=== PATIENT | female | born 1975 | race African-American/Black ===

== ENCOUNTER 2020-06-23 09:19 | Emergency (ER) | payer BC ==
[2020-06-23 09:29] VITALS: BP 166/99
--- NOTE | 2020-06-23 10:17 | ER Document Report ---
HPI - HPI Patient complains to provider of: Bilateral feet pain Time Seen by Provider: 06/23/20 10:03 Pain Level: 5 Context: 44-year-old female denies any past medical history presents emergency room complaining of bilateral feet pain for the past 2 months. Has been getting progressively worse over the past week. States her right foot is worse than the left. States most of her pain is in her heel and radiates up her calf. Worse in the morning slightly better throughout the day. States she is on her feet all day working in the [employer] at the [employer]. Has been taking extra strength Tylenol and soaking in warm water with some relief. Denies any trauma or injury. Associated Symptoms: None Exacerbated by: Walking Relieved by: Other Similar symptoms previously: No Recently seen / treated by doctor: No - ROS Systems Reviewed and Negative: Yes All other systems reviewed and negative - NEURO Neurology: DENIES: Weakness - REPRODUCTIVE LMP: [id number] Reproductive: DENIES: : - MUSCULOSKELETAL Musculoskeletal: REPORTS: Extremity pain - DERM Skin Color: Normal Skin Problems: None Past Medical History - General Information source: Patient - Social History Smoking Status: Current Every Day Smoker Chew tobacco use (# tins/day): No Frequency of alcohol use: Social Drug Abuse: Marijuana Family History: Reviewed & Not Pertinent Patient has homicidal ideation: No Vertical Provider Document - CONSTITUTIONAL Agree With Documented VS: Yes Exam Limitations: No Limitations General Appearance: Mild Distress - INFECTION CONTROL TRAVEL OUTSIDE OF THE [place] IN LAST 30 DAYS: No - HEENT HEENT: Atraumatic, Normocephalic - NECK Neck: Normal Inspection, Supple, Thyroid Normal - RESPIRATORY Respiratory: Breath Sounds Normal, No Respiratory Distress, Chest Non-Tender - CARDIOVASCULAR Cardiovascular: Regular Rate, Regular Rhythm, No Murmur - BACK Back: Normal Inspection - MUSCULOSKELETAL/EXTREMETIES Musculoskeletal/Extremeties: FROM, Tender - Tenderness on palpation to the plantar aspect of both feet. There is no inflammation. There is no swelling. Nontender with flexion, extension, eversion and inversion both feet. There is no obvious deformity noted. - NEURO Level of Consciousness: Awake, Alert, Appropriate Motor/Sensory: No Motor Deficit, No Sensory Deficit Notes: Positive pedal pulse bilaterally. Capillary refills are less than 3 seconds bilaterally. Negative Homans sign bilaterally. - DERM Integumentary: Warm, Dry, No Rash Course - Re-evaluation Re-evalutation: 06/23/20 10:13 Patient has no risk factors for DVTs. Discussed diagnosis with patient. Discussed patient's elevated blood pressure need to follow-up with a primary care physician. Counseled on need to follow-up with a primary care physician for her elevated blood pressure as well as for a possible podiatry referral for her chronic feet pain. On-call physician on-call orthopedist was provided. She was counseled to take Tylenol and/or Motrin as needed for pain. Counseled to buy heel inserts and or sole inserts for her shoes. Patient was given strict r eturn to the emergency room guidelines. Return for any new or worsening symptoms. All questions were answered. Patient verbalized understanding and agrees with plan of care. 06/23/20 10:24 - Vital Signs Vital signs: Temp Pulse Resp BP Pulse Ox 98.1 F 84 18 166/99 H 100 06/23/20 09:25 06/23/20 09:25 06/23/20 09:25 06/23/20 09:25 06/23/20 09:25 Discharge - Discharge Clinical Impression: Chronic pain of both feet, Plantar fasciitis, bilateral, Elevated blood pr essure reading Condition: Stable Disposition: HOME, SELF-CARE Instructions: High Blood Pressure ([facility]), Plantar Fasciitis or Heel Spur ([facility]) Additional Instructions: Tylenol and/or Motrin as needed for pain. Outpatient follow-up with a primary care physician as discussed. Outpatient follow-up with orthopedics. Heel and heel inserts as discussed. Forms: Return to Work Referrals: GABI LUNA MD [ACTIVE STAFF] - Follow up as needed KACI FISHMAN MD [ACTIVE STAFF] - Follow up as needed
== END 2020-06-23 10:12 | disposition home or self-care (01) ==
LOC: ER 09:19
DX: M79.671 Pain in right foot (principal); M79.672 Pain in left foot; G89.29 Other chronic pain; M72.9 Fibroblastic disorder, unspecified; R03.0 Elevated blood-pressure reading, without diagnosis of hypertension; M79.604 Pain in right leg; M79.605 Pain in left leg; F17.200 Nicotine dependence, unspecified, uncomplicated
CPT/HCPCS: 99282

== ENCOUNTER 2020-07-25 10:56 | Emergency (ER) | payer BC ==
--- NOTE | 2020-07-25 11:07 | ER Document Report ---
ED Medical Screen (RME) - General Chief Complaint: Leg Pain Stated Complaint: LEG PAIN Time Seen by Provider: 07/25/20 11:02 Mode of Arrival: Ambulatory Information source: Patient Notes: 44-year-old female presents to ED for complaint of pain to the back of both legs. She states they just burn and throb all day. She states they get very swollen. She stands on her feet a lot for work. She states the pain is just getting worse and worse and she has not been able to follow-up because she works so much. Patient is alert oriented respirations regular nonlabored speaking in full sentences. States she smokes about 3 cigarettes a day she states she does drink clear and uses a little marijuana. I have greeted and performed a rapid initial assessment of this patient. A comprehensive ED assessment and evaluation of the patient, analysis of test results and completion of medical decision making process will be conducted by an additional ED providers. TRAVEL OUTSIDE OF THE [place] IN LAST 30 DAYS: No - Related Data Allergies/Adverse Reactions: No Known Allergies Allergy (Verified 07/25/20 11:02) Physical Exam - Vital signs Vitals: Temp Pulse Resp BP Pulse Ox 98.2 F 93 16 159/97 H 100 07/25/20 11:01 07/25/20 11:01 07/25/20 11:01 07/25/20 11:01 07/25/20 11:01 Course - Vital Signs Vital signs: Temp Pulse Resp BP Pulse Ox 98.2 F 93 16 159/97 H 100 07/25/20 11:01 07/25/20 11:01 07/25/20 11:01 07/25/20 11:01 07/25/20 11:01
[2020-07-25 12:01] LABS: ABSOLUTE BASOPHILS # (AUTO) 0.1 10^3/uL (0.0-0.2); ABSOLUTE EOSINOPHILS # (AUTO) 0.1 10^3/uL (0.0-0.6); ABSOLUTE LYMPHOCYTES (AUTO) 3.2 10^3/uL (0.5-4.7); ABSOLUTE MONOCYTES (AUTO) 0.5 10^3/uL (0.1-1.4); APPEARANCE,URINE SLIGHTLY-CLOUDY; BASOPHILS % (AUTO) 0.7 % (0-2); BILIRUBIN,URINE NEGATIVE (NEGATIVE); COLOR,URINE YELLOW; EOSINOPHILS % (AUTO) 1.9 % (0-6); GLUCOSE, URINE NEGATIVE (NEGATIVE); HEMATOCRIT 37.3 % (36.0-47.0); HEMOGLOBIN 13.2 g/dL (12.0-15.5); KETONES,URINE NEGATIVE (NEGATIVE); LEUKOCYTE ESTERASE,URINE NEGATIVE (NEGATIVE); LYMPHOCYTES % (AUTO) 46.6 % (13-45); MEAN CORPUSCULAR HEMOGLOBIN 29.4 pg (27.0-33.4); MEAN CORPUSCULAR HGB CONC 35.4 g/dL (32.0-36.0); MEAN CORPUSCULAR VOLUME 83 fl (80-97); MONOCYTES % (AUTO) 7.8 % (3-13); NITRITE,URINE NEGATIVE (NEGATIVE); PLATELET COUNT 407 10^3/uL (150-450); PROTEIN,URINE NEGATIVE (NEGATIVE); RED BLOOD COUNT 4.48 10^6/uL (3.72-5.28); RED CELL DISTRIBUTION WIDTH 13.4 % (11.5-14.0); TOTAL CELLS COUNTED % (AUTO) 100 %; URINE SPECIFIC GRAVITY 1.015; UROBILINOGEN,URINE NEGATIVE mg/dL (<2.0); WHITE BLOOD COUNT 6.9 10^3/uL (4.0-10.5)
[2020-07-25 12:19] LABS: ALBUMIN 4.1 g/dL (3.5-5.0); ALKALINE PHOSPHATASE 69 U/L (38-126); ANION GAP 6 (5-19); ASPARTATE AMINO TRANSFERASE 18 U/L (14-36); BILIRUBIN,DIRECT 0.2 mg/dL (0.0-0.4); BILIRUBIN,TOTAL 0.4 mg/dL (0.2-1.3); BLOOD UREA NITROGEN 13 mg/dL (7-20); CALCIUM 9.2 mg/dL (8.4-10.2); CARBON DIOXIDE 30 mmol/L (22-30); CHLORIDE 105 mmol/L (98-107); GLUCOSE 99 mg/dL (75-110); PHOSPHORUS 4.6 mg/dL (2.5-4.5); POTASSIUM 4.2 mmol/L (3.6-5.0); TOTAL PROTEIN 6.8 g/dL (6.3-8.2)
--- NOTE | 2020-07-25 13:54 | RADIOLOGY REPORT (SQ) ---
EXAM DESCRIPTION: VENOUS BILATERAL LOWER IMAGES COMPLETED DATE/TIME: 07/25/2020 12:23 pm REASON FOR STUDY: pain and leg swelling COMPARISON: None. TECHNIQUE: Dynamic and static andersen scale and color images acquired of both lower extremity venous sy stems. Selected spectral images acquired with additional compression and augmentation maneuvers. Imag es stored on PACS. LIMITATIONS: None. FINDINGS: RIGHT LEG COMMON FEMORAL AND FEMORAL: Normal phasicity, compression and augmentation. No visualized echogenic m aterial on andersen scale. No defects on color images. POPLITEAL: Normal compression and augmentation. No visualized echogenic material on andersen scale. No de fects on color images. CALF VESSELS: Normal compression and augmentation. No visualized echogenic material on andersen scale. No defects on color image. GSV AND SSV: Normal compression. No visualized echogenic material on andersen scale. No defects on color images. ANY DEEP VENOUS INSUFFICIENCY: Not evaluated. ANY EVIDENCE OF POPLITEAL CYST: Yes. 2.5 x 8 x 3.2 cm right popliteal fossa cyst. OTHER: No other significant finding. LEFT LEG COMMON FEMORAL AND FEMORAL: Normal phasicity, compression and augmentation. No visualized echogenic m aterial on andersen scale. No defects on color images. POPLITEAL: Normal compression and augmentation. No visualized echogenic material on andersen scale. No de fects on color images. CALF VESSELS: Normal compression and augmentation. No visualized echogenic material on andersen scale. No defects on color images. GSV AND SSV: Normal compression. No visualized echogenic material on andersen scale. No defects on color images. ANY DEEP VENOUS INSUFFICIENCY: Not evaluated. ANY EVIDENCE POPLITEAL CYST: No. OTHER: No other significant finding. IMPRESSION: 1. NO EVIDENCE DVT OR SVT IN EITHER LEG. 2. Small right popliteal cyst. TECHNICAL DOCUMENTATION: JOB ID: [id number] 2010 [employer]- All Rights Reserved Reading location - IP/workstation name: [email or web address]
--- NOTE | 2020-07-25 15:30 | ER Document Report ---
Entered by LEILA COOK SCRIBE 07/25/20 [id number] Acting as scribe for:FILIBERTO WASSERMAN MD ED Extremity Problem, Lower - General Chief Complaint: Leg Pain Stated Complaint: LEG PAIN Time Seen by Provider: 07/25/20 11:02 Mode of Arrival: Ambulatory Information source: Patient Notes: This 44 year old female patient presents to the emergency department today with muscle aches in her bilateral lower extremities R>L. Patient states the aches are in her calves to her feet. Patient reports a chronic knot on her right foot that she has had for around x1 year. Patient states she stands all day for her job and works x6 days a week. Denies injury, chest pain, or shortness of breath. Patient states she takes x2-4 250 mg Ibuprofen for relief. Patient states she does not want to stay any longer in the ED for any x-rays. TRAVEL OUTSIDE OF THE [place] IN LAST 30 DAYS: No - Related Data Allergies/Adverse Reactions: No Known Allergies Allergy (Verified 07/25/20 11:02) Past Medical History - General Information source: Patient - Social History Smoking Status: Current Every Day Smoker Cigarette use (# per day): Yes Chew tobacco use (# tins/day): No Frequency of alcohol use: None Drug Abuse: Marijuana Family History: Reviewed & Not Pertinent Past Surgical History: Reports: Hx Section Review of Systems - Review of Systems Constitutional: No symptoms reported EENT: No symptoms reported Cardiovascular: See HPI. denies: Chest pain Respiratory: See HPI. denies: Short of breath Gastrointestinal: No symptoms reported Genitourinary: No symptoms reported Female Genitourinary: No symptoms reported Musculoskeletal: See HPI, Muscle pain - bilateral LE, R>L Skin: No symptoms reported Hematologic/Lymphatic: No symptoms reported Neurological/Psychological: No symptoms reported -: Yes All other systems reviewed and negative Physical Exam - Vital signs Vitals: Temp Pulse Resp BP Pulse Ox 98.2 F 93 16 159/97 H 100 07/25/20 11:01 07/25/20 11:01 07/25/20 11:01 07/25/20 11:01 07/25/20 11:01 - General General appearance: Appears well, Alert - HEENT Head: Normocephalic, Atraumatic Eyes: Normal Pupils: PERRL - Respiratory Respiratory status: No respiratory distress Chest status: Nontender Breath sounds: Normal Chest palpation: Normal - Cardiovascular Rhythm: Regular Heart sounds: Normal auscultation Murmur: No - Abdominal Inspection: Normal Distension: No distension Bowel sounds: Normal Tenderness: Nontender - Extremities General upper extremity: Normal inspection. No: Edema Notes: Soft tissue nodule on the dorsal mid foot. Nontender with palpation. Normal strength and ROM of bilateral lower extremities. - Neurological Neuro grossly intact: Yes Cognition: Normal Orientation: AAOx4 [place] Coma Scale Eye Opening: Spontaneous [place] Coma Scale Verbal: Oriented [place] Coma Scale Motor: Obeys Commands [place] Coma Scale Total: 15 Speech: Normal Motor strength normal: LUE, RUE, LLE, RLE Additional motor exam normals: Dorsiflexion, Plantar flexion - Psychological Associated symptoms: Normal affect, Normal mood - Skin Skin Temperature: Warm Skin Moisture: Dry Skin Color: Normal Course - Re-evaluation Re-evalutation: 07/25/20 15:23 Patient resting comfortably not showing any signs of distress. 07/25/20 15:24 Patient complains of pains in her feet and lower legs after working standing and walking all day for the past year. There is been no injury no leg edema no shortness of breath and no chest pain. 07/25/20 15:25 Discussed with patient that we would do an x-ray of her right foot as she shows and demonstrates that there is a nodule over the dorsal midfoot. There is no pain with there is soft tissues swelling and most likely represents a ganglion cyst. - Vital Signs Vital signs: Temp Pulse Resp BP Pulse Ox 98.2 F 93 16 159/97 H 100 07/25/20 11:01 07/25/20 11:01 07/25/20 11:01 07/25/20 11:01 07/25/20 11:01 07/25/20 15:23 Patient shows blood pressure elevation 159/97. Patient has no history of hypertension. Patient works every day according to her story working on her feet working on a [employer]. - Laboratory Result Diagrams: 07/25/20 11:15 07/25/20 11:15 Laboratory results interpreted by me: 07/25/20 07/25/20 07/25/20 11:15 11:15 11:15 Lymph % (Auto) 46.6 H Phosphorus 4.6 H Urine Blood MODERATE H 07/25/20 15:25 Laboratory evaluations essentially within normal limits with a 46% lymphocyte phosphorus is 4.6 and moderate blood in her urine. 07/25/20 15:26 The moderate blood shows up there is 3 red cells per high-powered field on the microscopic which is within the normal allowed range. Discharge - Discharge Clinical Impression: Right foot pain, Ganglion cyst of right foot, Elevated blood pressure reading without diagnosis of hypertension Condition: Stable Disposition: HOME, SELF-CARE Additional Instructions: Ganglion Cyst A ganglion cyst is jelly-like material inside a tough coating. The cyst usually forms near an old tendon injury. Symptoms begin when the cyst gets big enough to "get in the way." If the cyst is not growing and not hurting, it doesn't need treatment. Symptoms of a cyst can be eased by injection of cortisone. The cysts can be reduced in size by sucking the jelly material out of it (the cyst will usually grow back). A splint helps ease symptoms. We often give oral antiinflammatory medicine. Large cysts, or those that continue to cause pain, should be removed surgically. Come back if the area becomes red, swollen, or increasingly tender. Recommend you continue using ibuprofen as needed these ganglion cyst can become larger if continue to be irritated consider using pads in your boot to allow more of a cushion over the the ganglion cyst this on top of your right foot. If this persists is a problem recommend you follow-up with a supervisor compressed yeast. You have elevated blood pressure today. As we discussed you has never been diag nosed with hypertension and. We recommend that you follow-up with a primary care clinic and and if possible start monitoring your blood pressure to determine if is elevated or more than 1 occasion. Forms: Elevated Blood Pressure, Smoking Cessation Education I personally performed the services described in the documentation, reviewed and edited the documentation which was dictated to the scribe in my presence, and it accurately records my words and actions.
[2020-07-25 15:58] VITALS: BP 155/81
== END 2020-07-25 15:50 | disposition home or self-care (01) ==
LOC: ER 10:56
DX: M67.471 Ganglion, right ankle and foot (principal); M79.671 Pain in right foot; R03.0 Elevated blood-pressure reading, without diagnosis of hypertension; F17.210 Nicotine dependence, cigarettes, uncomplicated
CPT/HCPCS: 36415; 80053; 81001; 83735; 84100; 85025; 93970; 99284